=== PATIENT | female | born 1980 | race Caucasian/White ===

== ENCOUNTER 2019-01-01 10:13 | Emergency (ER) | payer MEDICAID ==
[~2019-01-01] VITALS: Ht 170.2 cm; Wt 79.0 kg
[2019-01-01 10:18] VITALS: BP 128/92
== END 2019-01-01 13:02 | disposition left against medical advice (07) ==
LOC: ER 10:13
DX: Z53.21 Procedure and treatment not carried out due to patient leaving prior to being seen by health care provider (principal)